=== PATIENT | male | born 1980 | race Caucasian/White ===

== ENCOUNTER → 2016-08-12 | Day surgery (SDC) | payer OTHER ==
[2016-07-30 12:57] VITALS: BMI 21.0
[~2016-08-12] VITALS: Ht 165.1 cm; Wt 58.9 kg
[~2016-08-12] MED LIST: ALBU1NEB10 INH; ALEN70TA3 PO; BACIOIN EXT; CHOL1DRO PEG; CLOT1CRE3 EX; LACT10SO17 GT; LEVE100S10 PEG; LEVO-217 PEG; LEVO330T2 PEG; LORA1SOL3 PEG; MAGN400T6 PEG; METO10SO PEG; NUTR-673 PEG; NYSS/ PEG; ONDA4TAB4 PO; PANTPAK PEG; PBL PEG; SLSS EXT; TRIA0.1C20 EX; [UNRECOGNIZED DRUG - CODE] PEG
[2016-08-12 14:11] VITALS: Ht 165.1 cm; Wt 58.9 kg
--- NOTE | 2016-08-12 15:05 | Discharge Instructions ---
Endoscopy Patient Instructions Date / Procedure Performed Aug 12, 2016. Percutaneous Endoscopic Gastrotomy (P.E.G) Tube Replacement / Removal Allergy Information Coded Allergies: Cephalexin (Verified Allergy, Intermediate, rash, 08/12/16) Clavulanic Acid (Verified Allergy, Intermediate, rash, 08/12/16) Cephalosporins (Verified Allergy, Mild, ALLERGY TO CLAFORAN, 08/12/16) Senna (Verified Allergy, Mild, RASH, 08/12/16) Home Medication List Scheduled Alendronate/Cholecalciferol (Fosamax+D 70MG/5600 Iu), 1 TABLET PO THURSDAY Bacitracin (Bacitracin), 1 APPLN EXT UD Cholecalciferol (Vitamin D), 5 ML PEG QAM Lactulose (Chronulac), GT 2XWK Levetiracetam (Keppra), 5 ML PEG BID Levocarnitine (Metabolic Modif (Carnitor), 660 MG PEG UD Levocarnitine (Metabolic Modif (Carnitor), 330 MG PEG QAM Levothyroxine (Levothroid), 0.05 MG PEG QAM Loratadine (Loratadine), 10 ML PEG QAM Magnesium Oxide (Mag-Ox), 400 MG PEG BID Metoclopramide Hcl (Reglan), 10 ML PEG ACHS Nutritional Supplements (Jevity 1.5 Tung), 1 CAN PEG 5XD Pantoprazole Sodium (Protonix), 1 PACK PEG QPM Phenobarbital (Phenobarbital), 20 ML PEG HS Phenytoin (Dilantin-125), 3 ML PEG QAM Phenytoin (Dilantin-125), 2 ML PEG BID UD Selenium Sulfide (Selsun), EXT UD Scheduled PRN Albuterol Soln (Ventolin Soln), 1 AMP INH Q4H PRN for PRN Clotrimazole Vaginal (Clotrimazole), EX BID PRN Nystatin (Nystatin Suspension), 1 TSP PEG QID PRN Ondansetron Tab (Zofran), 4 MG PO UD PRN for Nausea Triamcinolone Acet 0.1% (Aristocort 0.1%), EX UD PRN Discharge Date / Findings Aug 12, 2016. CHIKIS-SELBY PEG replaced. Medication Instructions Restart Stopped Medication(s): Restart tube feeds and medications today. Provider Instructions Activity Recommendations * Resume regular activity . Diet Recommendations * Resume previous diet. * Advance diet as tolerated. * Before each feeding, aspirate the tube for residual gastric contents. Hold feedings for residual of 50 ml or more. * Elevate the head of the bed during and after feedings for 30-60 minutes . Medication Instructions * Resume usual medications. * Always flush the tube with warm water after administration of medication. Follow-Up Information Follow-up with as scheduled Anesthesia Information What You Should Know You have had a procedure that required some medicine to reduce anxiety and discomfort. This treatment is called moderate sedation. After receiving the treatment, you may be sleepy, but you will be able to breathe on your own. The effects of the treatment may last for several hours. Follow these instructions along with Activity/Diet recommendations noted above: * Do NOT do anything where dizziness or clumsiness would be dangerous. * Rest quietly at home today, then you can be up and about tomorrow. * Have a responsible person stay with you the rest of today. * You may have had an I.V. today. If so, you may take the dressing off later today. Symptoms Additional Instructions If you experience any of the following symptoms after your procedure seek medical attention at your closest Emergency Room and/or call your primary care physician immediately: * Severe abdominal pain or bloating * Fever greater than 101.1 degrees within 24 hours after the procedure * Uncontrolled nausea and vomiting Avoid all tobacco products. If you need help to stop smoking, call [place]'s FREE QUIT LINE at [phone]- [phone]. Your discharge instructions were prepared by provider Dewayne Reich. Patient Instructions Signature Page Epi Sosa Patient (or Guardian) Signature/Date: I have read and understand the instructions given to me by my caregivers. Caregiver/RN/Doctor Signature/Date: The above-named patient and/or guardian has received patient instructions on this date. + Original Patient Signature Page (only) stays with chart. Please make copy for patient.
--- NOTE | 2016-08-12 15:10 | GI REPORT ---
Procedure Date: 08/12/2016 3:06 PM Procedure: Non-endoscopic Tube Procedure Indications: Routine exchange PEG tube Medicines: None Complications: No immediate complications. Estimated blood loss: None Estimated Blood Loss: Estimated blood loss: none. Procedure: Pre-Anesthesia Assessment: - Prior to the procedure, a History and Physical was performed, and patient medications, allergies and sensitivities were reviewed. The patient's tolerance of previous anesthesia was reviewed. - ASA Grade Assessment: III - A patient with severe systemic disease. After obtaining informed consent, the site was prepped and the procedure was performed. The procedure was accomplished with ease. The patient tolerated the procedure well. Findings: Upon external examination, skin erythema was found surrounding the stomal opening. The gastrostomy tube was broken. The existing gastrostomy site was examined and cleaned. A 20 Fr CHIKIS-SELBY low-profile gastrostomy tube was lubricated and placed into the existing gastrostomy port. A total of 5 mL saline was used to distend the balloon that was previously tested. When positioned, the skin marking was noted to be 3.5 cm at the external bumper. The final tension and compression of the abdominal wall by the gastrostomy tube and external bumper were checked and revealed that the bumper was loose and lightly touching the skin. Placement into the stomach was confirmed with flushing, aspiration and auscultation. The tube was capped, and the tube site was cleaned and dressed. Impression: - The previously removed gastrostomy tube was replaced with a 20 Fr CHIKIS-SELBY low-profile gastrostomy tube. - No specimens collected. Recommendation: - Discharge patient to home (with parent). - Please follow the post-PEG recommendations. Dewayne Reich M.D. Dewayne Reich MD 08/12/2016 3:10:56 PM This report has been signed electronically. Note Initiated On: 08/12/2016 3:06 PM I attest to the content of the Intraoperative Record and orders documented therein, exceptions below
--- NOTE | 2016-08-12 15:11 | Endo History and Physical ---
History & Physical Date of Service: Aug 12, 2016. Chief Complaint: PEG change Referring Physician: Dr. Soto History of Present Illness CHIKIS-SELBY button PEG, needs changed Past Medical History Arthritis, Asthma, Reflux, Seizure Disorder, Thyroid Disease Past Surgical History Hx Cardiac Surgery: No Hx Internal Defibrillator: No Hx Pacemaker: No Hx Abdominal Surgery: Yes (PEG TUBE PLACEMENT X MANY REPLACEMENTS) Hx of Implantable Prosthesis: No Hx Post-Op Nausea and Vomiting: No Hx Cancer Surgery: No Hx Thoracic Surgery: No Hx Orthopedic: No Hx Urinary Tract Surgery: No Family History None Social History Smoking Status: Never Smoker Hx Substance Use: No Hx Alcohol Use: No Allergies Coded Allergies: Cephalexin (Verified Allergy, Intermediate, rash, 08/12/16) Clavulanic Acid (Verified Allergy, Intermediate, rash, 08/12/16) Cephalosporins (Verified Allergy, Mild, ALLERGY TO CLAFORAN, 08/12/16) Senna (Verified Allergy, Mild, RASH, 08/12/16) Current Medications Reported Home Medications Medications Dose Route/Sig Max Daily Dose Days Date Category Dose Instructions Fosamax+D 70MG/5600 Iu (Alendronate Sodium/Vitamin D3) 70 Mg Tab 1 Tablet PO Thursday12/14/14 Reported Chronulac (Lactulose) 10 Gm/15 Ml Syrp GT 2XWK 12/12/14 Reported Ventolin Soln (Albuterol Soln) 0.083 % Neb 1 Amp INH Q4H PRN 07/06/14 Reported PRN SHORTNESS OF BREATH/WHEEZING Bacitracin Oin 1 Appln EXT UD 07/06/14 Reported APPLY TO SITE 2 T 3X DAILY NEEDED Selsun (Selenium Sulfide) Lotn EXT UD 14 07/06/14 Reported APPLY TO AFFECTED AREAS , LEAVE ON FOR 10 MINUTES ONCE A DAY FOR 7 DAYS Zofran (Ondansetron HCl) 4 Mg Tab 4 Mg PO UD PRN 07/06/14 Reported SOLN 4MG/5ML- GIVE 10ML 3 TIMES DAILY NEEDED FOR VOMITING Vitamin D (Cholecalciferol) 400 Unit/Ml Jaya 5 Ml PEG QAM 03/24/14 Reported Dilantin-125 (Phenytoin) 125 Mg/5 Ml Francine 2 Ml PEG BID UD 06/30/13 Reported 2 MLS IN THE AFTERNOON AND EVENING Dilantin-125 (Phenytoin) 125 Mg/5 Ml Francine 3 Ml PEG QAM 06/30/13 Reported Protonix (Pantoprazole Sodium) 40 Mg Jaswinder 1 Pack PEG QPM 06/30/13 Reported Jevity 1.5 Tung (Nutritional Supplements) 1 Liq Liq 1 Can PEG 5XD 01/10/13 Reported Aristocort 0.1% (Triamcinolone Acetonide) Cr EX UD PRN 01/10/13 Reported Clotrimazole (Clotrimazole Vaginal) 1 % Cre EX BID PRN 01/10/13 Reported USE TWICE A DAY DIRECTED FOR RASH Loratadine 5 Mg/5 Ml Syp 10 Ml PEG QAM 01/10/13 Reported Nystatin Suspension (Nystatin) 1 Ml Susp 1 Tsp PEG QID PRN 01/10/13 Reported Reglan (Metoclopramide HCl) 5 Mg/5 Ml Syrp 10 Ml PEG ACHS 01/10/13 Reported TAKE 30 MINS. PRIOR TO MEALS AND AT HS Carnitor (Levocarnitine (Metabolic Modif) 330 Mg Tab 330 Mg PEG QAM 01/10/13 Reported Carnitor (Levocarnitine (Metabolic Modif) 330 Mg Tab 660 Mg PEG UD 01/10/13 Reported 660 MG IN THE EVENING AND AT HS Levothroid (Levothyroxine Sodium) 0.05 Mg Tab 0.05 Mg PEG QAM 01/10/13 Reported Phenobarbital 20 Mg/5 Ml Elix 20 Ml PEG HS 01/10/13 Reported Keppra (Levetiracetam) 100 Mg/Ml Franci 5 Ml PEG BID 01/10/13 Reported Mag-Ox (Magnesium Oxide) 400 Mg Tab 400 Mg PEG BID 03/29/07 Reported Vital Signs Weight (Kilograms): 58.9 Height (Feet): 5 Height (Inches): 5 Date Time Temp Pulse Resp B/P Pulse Ox O2 Delivery O2 Flow Rate FiO2 08/12/16 13:50 75 20 120/66 96 Room Air Physical Exam General Appearance: WD/WN, no apparent distress Respiratory/Chest: Auscultation: breath sounds normal Cardiovascular: Heart Auscultation: RRR, no murmurs Abdomen: Inspection & Palpation: soft, no tenderness, guarding & rebound Assessment and Plan For PEG exchange.
[2016-08-12 15:15] VITALS: BP 124/68; PULSE 73; O2SAT 95
== END | disposition home or self-care (01) ==
LOC: C.GI 13:12
PROVIDERS: ATTEND Internal Medicine Gastroenterology
DX: Z43.1 Encounter for attention to gastrostomy (principal); J45.909 Unspecified asthma, uncomplicated

== ENCOUNTER → 2016-12-09 | Day surgery (SDC) | payer OTHER ==
[2016-12-01 10:35] VITALS: Ht 165.1 cm; Wt 57.7 kg
[~2016-12-09] VITALS: Ht 165.1 cm; Wt 57.7 kg
[2016-12-09 10:00] VITALS: TEMP 36.4
--- NOTE | 2016-12-09 10:49 | GI REPORT ---
Procedure Date: 12/09/2016 10:43 AM Procedure: Non-endoscopic Tube Procedure Indications: Routine exchange PEG tube Medicines: None Complications: No immediate complications. Estimated Blood Loss: Estimated blood loss: none. Procedure: Pre-Anesthesia Assessment: - Prior to the procedure, a History and Physical was performed, and patient medications, allergies and sensitivities were reviewed. The patient's tolerance of previous anesthesia was reviewed. - The risks and benefits of the procedure and the sedation options and risks were discussed with the patient and family/POA present. All questions were answered and informed consent was obtained. - Patient identification and proposed procedure were verified prior to the procedure by the physician and the nurse. The procedure was verified in the pre-procedure area. - Pre-procedure physical examination revealed no contraindications to sedation. - After reviewing the risks and benefits, the patient was deemed in satisfactory condition to undergo the procedure. After obtaining informed consent, the site was prepped and the procedure was performed. The procedure was accomplished without difficulty. The patient tolerated the procedure well. Findings: Upon external examination, normal-appearing skin was found surrounding the stomal opening. The existing gastrostomy site was examined and cleaned and appeared healthy. A 20 Fr CHIKIS-SELBY low-profile gastrostomy tube was lubricated and placed into the existing gastrostomy port. A total of 5 mL saline was used to distend the balloon that was previously tested. When positioned, the skin marking was noted to be 3.5 cm at the external bumper. The final tension and compression of the abdominal wall by the gastrostomy tube and external bumper were checked and revealed that the bumper was loose and lightly touching the skin. Placement into the stomach was confirmed by easily flushing the tube. The tube was capped, and the tube site was cleaned and dressed. Estimated blood loss: none. Impression: - The previously removed gastrostomy tube was replaced with a 20 Fr CHIKIS-SELBY low-profile gastrostomy tube. - No specimens collected. Recommendation: - Discharge patient to home. Prabhakar Dai M.D. Prabhakar Dai MD 12/09/2016 10:49:18 AM This report has been signed electronically. Note Initiated On: 12/09/2016 10:43 AM I attest to the content of the Intraoperative Record and orders documented therein, exceptions below
--- NOTE | 2016-12-09 10:50 | Endo History and Physical ---
History & Physical Date of Service: Dec 09, 2016. Chief Complaint: routine change Referring Physician: Dr. Sal History of Present Illness for peg exchange Past Medical History Arthritis, Asthma, Reflux, Seizure Disorder, Thyroid Disease Past Surgical History Hx Cardiac Surgery: No Hx Internal Defibrillator: No Hx Pacemaker: No Hx Abdominal Surgery: Yes (PEG TUBE PLACEMENT X MANY REPLACEMENTS) Hx of Implantable Prosthesis: No Hx Post-Op Nausea and Vomiting: No Hx Cancer Surgery: No Hx Thoracic Surgery: No Hx Orthopedic: No Hx Urinary Tract Surgery: No Social History Smoking Status: Never Smoker Hx Substance Use: No Hx Alcohol Use: No Allergies Coded Allergies: Cephalexin (Verified Allergy, Intermediate, rash, 12/01/16) Clavulanic Acid (Verified Allergy, Intermediate, rash, 12/01/16) Cephalosporins (Verified Allergy, Mild, ALLERGY TO CLAFORAN, 12/01/16) Senna (Verified Allergy, Mild, RASH, 12/01/16) Current Medications Reported Home Medications Medications Dose Route/Sig Max Daily Dose Days Date Category Dose Instructions Fosamax+D 70MG/5600 Iu (Alendronate Sodium/Vitamin D3) 70 Mg Tab 1 Tablet PO Thursday12/14/14 Reported Chronulac (Lactulose) 10 Gm/15 Ml Syrp GT 2XWK 12/12/14 Reported Ventolin Soln (Albuterol Soln) 0.083 % Neb 1 Amp INH Q4H PRN 07/06/14 Reported PRN SHORTNESS OF BREATH/WHEEZING Bacitracin Oin 1 Appln EXT UD 07/06/14 Reported APPLY TO SITE 2 T 3X DAILY NEEDED Selsun (Selenium Sulfide) Lotn EXT UD 14 07/06/14 Reported APPLY TO AFFECTED AREAS , LEAVE ON FOR 10 MINUTES ONCE A DAY FOR 7 DAYS Zofran (Ondansetron HCl) 4 Mg Tab 4 Mg PO UD PRN 07/06/14 Reported SOLN 4MG/5ML- GIVE 10ML 3 TIMES DAILY NEEDED FOR VOMITING Vitamin D (Cholecalciferol) 400 Unit/Ml Jaya 5 Ml PEG QAM 03/24/14 Reported Dilantin-125 (Phenytoin) 125 Mg/5 Ml Francine 2 Ml PEG BID UD 06/30/13 Reported 2 MLS IN THE AFTERNOON AND EVENING Dilantin-125 (Phenytoin) 125 Mg/5 Ml Francine 3 Ml PEG QAM 06/30/13 Reported Protonix (Pantoprazole Sodium) 40 Mg Jaswinder 1 Pack PEG QPM 06/30/13 Reported Jevity 1.5 Tung (Nutritional Supplements) 1 Liq Liq 1 Can PEG 5XD 01/10/13 Reported Aristocort 0.1% (Triamcinolone Acetonide) Cr EX UD PRN 01/10/13 Reported Clotrimazole (Clotrimazole Vaginal) 1 % Cre EX BID PRN 01/10/13 Reported USE TWICE A DAY DIRECTED FOR RASH Loratadine 5 Mg/5 Ml Syp 10 Ml PEG QAM 01/10/13 Reported Nystatin Suspension (Nystatin) 1 Ml Susp 1 Tsp PEG QID PRN 01/10/13 Reported Reglan (Metoclopramide HCl) 5 Mg/5 Ml Syrp 10 Ml PEG ACHS 01/10/13 Reported TAKE 30 MINS. PRIOR TO MEALS AND AT HS Carnitor (Levocarnitine (Metabolic Modif) 330 Mg Tab 330 Mg PEG QAM 01/10/13 Reported Carnitor (Levocarnitine (Metabolic Modif) 330 Mg Tab 660 Mg PEG UD 01/10/13 Reported 660 MG IN THE EVENING AND AT HS Levothroid (Levothyroxine Sodium) 0.05 Mg Tab 0.05 Mg PEG QAM 01/10/13 Reported Phenobarbital 20 Mg/5 Ml Elix 20 Ml PEG HS 01/10/13 Reported Keppra (Levetiracetam) 100 Mg/Ml Franci 5 Ml PEG BID 01/10/13 Reported Mag-Ox (Magnesium Oxide) 400 Mg Tab 400 Mg PEG BID 03/29/07 Reported Vital Signs Weight (Kilograms): 57.73 Height (Feet): 5 Height (Inches): 5 Date Time Temp Pulse Resp B/P (MAP) Pulse Ox O2 Delivery O2 Flow Rate FiO2 12/09/16 10:00 36.4 75 16 105/79 (88) 97 Room Air Physical Exam General Appearance: no apparent distress Respiratory/Chest: Auscultation: breath sounds normal Cardiovascular: Heart Auscultation: RRR Abdomen: Inspection & Palpation: soft, no tenderness, guarding & rebound Assessment and Plan stable for PEG change
--- NOTE | 2016-12-09 10:51 | Discharge Instructions ---
Endoscopy Patient Instructions Date / Procedure(s) Performed Dec 09, 2016. Other Allergy Information Coded Allergies: Cephalexin (Verified Allergy, Intermediate, rash, 12/01/16) Clavulanic Acid (Verified Allergy, Intermediate, rash, 12/01/16) Cephalosporins (Verified Allergy, Mild, ALLERGY TO CLAFORAN, 12/01/16) Senna (Verified Allergy, Mild, RASH, 12/01/16) Discharge Date / Findings Dec 09, 2016. s/p PEG exchange Provider Instructions Activity Restrictions - No exercising or heavy lifting for 24 hours. - Do not drink alcohol the day of the procedure. - Do not drive a car or operate machinery until the day after the procedure. - Do not make any important decisions or sign important papers in 24 hours after the procedure. Following Day: - Return to full activity which may include returning to work/school. Diet Start your diet with liquids and light foods (jello, soup, juice, toast). Then eat your usual diet if not nauseated. Treatment For Common After Affects For mild abdominal pain, bloating, or excessive gas: - Rest - Eat lightly - Lie on right side Follow-Up Information Follow-up with Dr. Sal as scheduled Anesthesia Information What You Should Know You have had a procedure that required some medicine to reduce anxiety and discomfort. This treatment is called moderate sedation. After receiving the treatment, you may be sleepy, but you will be able to breathe on your own. The effects of the treatment may last for several hours. Follow these instructions along with Activity/Diet recommendations noted above: * Do NOT do anything where dizziness or clumsiness would be dangerous. * Rest quietly at home today, then you can be up and about tomorrow. * Have a responsible person stay with you the rest of today. * You may have had an I.V. today. If so, you may take the dressing off later today. Recommendations Call your doctor if: * Trouble breathing * Continuous vomiting for more than 24 hours * Temperature above 101 degrees * Severe abdominal pain or bloating * Pain not relieved by pain medicine ordered * There is increased drainage or redness from any incision * A large amount of rectal bleeding greater than 2-3 tablespoons. (If you had a polyp/s removed or have hemorrhoids, a small amount of blood - from the rectum is to be expected.) * You have any unanswered questions or concerns. IN THE EVENT OF A SERIOUS EMERGENCY, GO TO THE NEAREST EMERGENCY ROOM Your discharge instructions were prepared by provider Prabhakar Dai. Patient Instructions Signature Page Epi Sosa Patient (or Guardian) Signature/Date: I have read and understand the instructions given to me by my caregivers. Caregiver/RN/Doctor Signature/Date: The above-named patient and/or guardian has received patient instructions on this date. + Original Patient Signature Page (only) stays with chart. Please make copy for patient.
[2016-12-09 10:52] VITALS: BP 110/64; PULSE 74; O2SAT 97
== END | disposition home or self-care (01) ==
LOC: C.GI 09:24
PROVIDERS: ATTEND Internal Medicine Gastroenterology
DX: Z43.1 Encounter for attention to gastrostomy (principal); K21.9 Gastro-esophageal reflux disease without esophagitis; J45.909 Unspecified asthma, uncomplicated; G40.909 Epilepsy, unspecified, not intractable, without status epilepticus; E07.9 Disorder of thyroid, unspecified; Z79.899 Other long term (current) drug therapy

== ENCOUNTER → 2017-04-21 | Day surgery (SDC) | payer OTHER ==
[2017-04-14 14:37] VITALS: Ht 165.1 cm; Wt 57.7 kg
[~2017-04-21] VITALS: Ht 165.1 cm; Wt 57.7 kg
[~2017-04-21] MED LIST changes: -ALBU1NEB10 INH; +BACI500O11 EXT; -BACIOIN EXT; -LEVO-217 PEG; +LEVO50TA6 PEG; -METO10SO PEG; +METO5SOL PEG; +ONDA4SOL PEG; -ONDA4TAB4 PO; -TRIA0.1C20 EX; +TRMCR515 TOP; +VNTHFA/IN INH
== END | disposition home or self-care (01) ==
LOC: C.GI 11:04
PROVIDERS: ATTEND Internal Medicine Gastroenterology
DX: Z93.1 Gastrostomy status (principal); Z53.9 Procedure and treatment not carried out, unspecified reason

== ENCOUNTER 2017-06-29 10:19 | Emergency (ER) | payer OTHER ==
[~2017-06-29] VITALS: Ht 188 cm; Wt 55.5 kg
[~2017-06-29 10:19] MED LIST changes: -LACT10SO17 GT; +LACT10SO17 PEG
[2017-06-29 11:29] VITALS: Ht 188 cm; Wt 55.5 kg
[2017-06-29] MEDS ORDERED: CLOT1CRE3 TOP (12:35)
[2017-06-29] MEDS ORDERED: ALEN70TA2 PO (12:35)
[2017-06-29] MEDS ORDERED: RRALBUT083 INH (12:35)
[2017-06-29] MEDS ORDERED: BISA10SU38 PR (12:35)
[2017-06-29 12:42] LABS: BASO % 0.3 %; BASO ABS # 0.02 K/uL (0-0.2); EOS % 6.2 %; EOS ABS # 0.38 K/uL (0-0.5); HEMATOCRIT 42.4 % (42-52); HEMOGLOBIN 14.2 g/dL (14.0-18.0); IG# 0.01 K/uL (0.00-0.02); LYMPH % 38.6 %; LYMPH ABS # 2.36 K/uL (1.2-3.4); MEAN CELL VOLUME 92.2 fL (80-100); MEAN CORPUSCULAR HEMOGLOBIN 30.9 pg (25-34); MEAN CORPUSCULAR HGB CONC 33.5 g/dl (32-36); MEAN PLATELET VOLUME 11.1 fL (7.4-10.4); MONO % 15.2 %; MONO ABS # 0.93 K/uL (0.11-0.59); NEUT % 39.5 %; NEUT ABS # 2.42 K/uL (1.4-6.5); PLATELET COUNT 205 K/uL (130-400); RED CELL DISTRIBUTION WIDTH CV 13.5 % (11.5-14.5); RED CELL DISTRIBUTION WIDTH SD 45.4 fL (36.4-46.3); WHITE BLOOD COUNT 6.12 K/uL (4.8-10.8)
[2017-06-29 12:54] LABS: INR 1.1 (0.9-1.1); PTT PATIENT 32.2 SECONDS (21.0-31.0)
[2017-06-29 12:59] LABS: ALBUMIN 3.9 gm/dl (3.4-5.0); ALT/SGPT 25 U/L (12-78); AST/SGOT 20 U/L (15-37); BLOOD UREA NITROGEN 28 mg/dl (7-18); CALCIUM 9.1 mg/dl (8.5-10.1); CARBON DIOXIDE 30 mmol/L (21-32); CREATININE 0.53 mg/dl (0.60-1.40); POTASSIUM 3.6 mmol/L (3.5-5.1); SODIUM 140 mmol/L (136-145)
--- NOTE | 2017-06-29 13:00 | DIAGNOSTIC IMAGING REPORT ---
CHEST ONE VIEW PORTABLE CLINICAL HISTORY: congestion dyspnea COMPARISON STUDY: 03/29/2007 FINDINGS: Mild stable cardiomegaly. Central catheter in superior vena cava. Lungs are clear. Chronic scoliosis of the thoracic spine. IMPRESSION: No acute process. The above report was generated using voice recognition software. It may contain grammatical, syntax or spelling errors. Electronically signed by: Chano Ndiaye M.D. 06/29/2017 12:59 PM Dictated Date/Time: 06/29/2017 12:58 PM
[2017-06-29 13:05] LABS: ALKALINE PHOSPHATASE 89 U/L (45-117); GLUCOSE 86 mg/dl (70-99); TOTAL PROTEIN 7.3 gm/dl (6.4-8.2)
[2017-06-29 13:06] LABS: INFLUENZA A PCR Neg for Influ A (NEG); INFLUENZA B PCR Neg for Influ B (NEG)
[2017-06-29] MEDS ORDERED: IBUPROFEN 200 MG/10 ML UDC PO STA (13:15)
--- NOTE | 2017-06-29 13:22 | EMERGENCY ROOM VISIT NOTE ---
History Report prepared by Onelia: Dao Beaver Under the Supervision of: Dr. Rebecca Palma D.O. First contact with patient: 11:59 Chief Complaint: FLU LIKE SX Stated Complaint: SEIZURE,HIGH FEVER History of Present Illness The patient is a 37 year old male who presents to the Emergency Room with complaints of a persistent fever that began last night. This history is given by the patient's parents. He has a past medical history of seizures and is currently taking Keppra, Phenobarbital, and Dilantin. Since last night, the patient's temperature has been elevated at 102 F. He also has been having some yellow, crusty rhinorrhea, coughing, and shakiness. This morning, the patient had a normal seizure that lasted 1 minute, and he came out of it normally. He received his influenza immunization and denies any sick contacts. He does not leave the house often, but his parents do. He has been moving his bowels normally and denies any diarrhea, hematochezia, or melena. Source of History: patient Onset: last night Position: other (Global) Symptom Intensity: 102 F Quality: other (Fever) Timing: constant Associated Symptoms: + cough, No melena, No hematochezia, No diarrhea Note: He has been shaky with yellow, crusty rhinorrhea. Review of Systems See HPI for pertinent positives & negatives. A total of 10 systems reviewed and were otherwise negative. Past Medical & Surgical Medical Problems: (1) Cerebral palsy (2) Pneumonia Family History Diabetes mellitus Gallbladder disease Heart disease Hypertension Kidney disease Social History Smoking Status: Never Smoker Smokeless Tobacco Use: No Alcohol Use: none Drug Use: none Marital Status: single Housing Status: lives with family Occupation Status: unemployed Current/Historical Medications Scheduled Alendronate Sodium (Fosamax), 70 MG PO WK Cholecalciferol (Vitamin D), 3 ML PEG BID Lactulose (Chronulac), 15 ML PEG QID Levetiracetam (Keppra), 5 ML PEG BID Levocarnitine (Metabolic Modif (Carnitor), 660 MG PEG UD Levocarnitine (Metabolic Modif (Carnitor), 330 MG PEG QAM Levothyroxine Sodium (Levothyroxine Sodium), 50 MCG PEG QAM Loratadine (Loratadine), 10 ML PEG QAM Magnesium Oxide (Mag-Ox), 400 MG PEG BID Metoclopramide Hcl (Reglan), 10 ML PEG ACHS Nutritional Supplements (Jevity 1.5 Tung), 1 CAN PEG 5XD Pantoprazole Sodium (Protonix), 1 PACK PEG QPM Phenobarbital (Phenobarbital), 20 ML PEG HS Phenytoin (Dilantin-125), 3 ML PEG QAM Phenytoin (Dilantin-125), 2 ML PEG BID UD Scheduled PRN Albuterol Hfa (Ventolin Hfa), 2-4 PUFFS INH Q6H PRN for SOB/Wheezing Albuterol Sulf (Albuterol Sulfate), 3 ML INH Q4H PRN for SOB/Wheezing Bacitracin (Topical) (Bacitracin), 1 APPLN EXT TID PRN for PRN Bisacodyl (Dulcolax), 10 MG [place] Q2D PRN for Constipation Clotrimazole Vaginal (Clotrimazole), 1 APPLN TOP BID PRN for RASH Nystatin (Nystatin Suspension), 1 TSP PEG QID PRN Ondansetron (Ondansetron HCl), 10 ML PEG TID PRN for Nausea Selenium Sulfide (Selsun), 0 EXT UD PRN for PRN Triamcinolone Acet (Triamcinolone Acetonide), 1 APPLN TOP BID PRN for PRN Allergies Coded Allergies: Amoxicillin (Unverified Allergy, Severe, RASH, 06/29/17) Cephalexin (Verified Allergy, Intermediate, rash, 06/29/17) Clavulanic Acid (Verified Allergy, Intermediate, rash, 06/29/17) Cephalosporins (Verified Allergy, Mild, ALLERGY TO CLAFORAN, 06/29/17) Senna (Verified Allergy, Mild, RASH, 06/29/17) Physical Exam Vital Signs Date Time Temp Pulse Resp B/P (MAP) Pulse Ox O2 Delivery O2 Flow Rate FiO2 06/29/17 16:25 68 18 96 06/29/17 15:30 82 18 96 Room Air 06/29/17 13:36 06/29/17 13:36 36.8 90 16 183/158 96 Room Air 06/29/17 13:31 72 06/29/17 12:07 93 18 96 Room Air 06/29/17 11:29 37.3 93 18 211/180 96 Room Air 2/5/18 10:40 65 18 99 Room Air Physical Exam HEENT: Head - normocephalic and atraumatic Pupils are equal, round, and reactive to light. Extraocular eye muscles are intact, and sclera are anicteric. Nose - moist nasal mucosa without discharge. Mouth - moist buccal mucosa. Oropharynx is nonerythematous and there is no tonsillar exudate or edema noted. Neck: Supple; no JVD, nuchal rigidity, cervical lymphadenopathy. Heart: Tachycardic rate with a regular rhythm. There is a normal S1 and S2 with no murmurs, clicks, or gallops appreciated. Lungs: Clear to auscultation bilaterally with no wheezes, rales, or rhonchi. Abdomen: Soft, completely nontender, distended, with good bowel sounds. There are no palpable pulsatile masses or hepatosplenomegaly. There is no guarding, rigidity, or rebound noted. Extremities: No evidence of cyanosis, clubbing, or edema. There are easily palpable peripheral pulses. Abrasions to the dorsal aspect of the right hand. Skin: hot and dry with good turgor and no rashes. Medical Decision & Procedures ER Provider Diagnostic Interpretation: Radiology results as stated below per my review and the radiologist's interpretation: CHEST ONE VIEW PORTABLE CLINICAL HISTORY: congestion dyspnea COMPARISON STUDY: 03/29/2007 FINDINGS: Mild stable cardiomegaly. Central catheter in superior vena cava. Lungs are clear. Chronic scoliosis of the thoracic spine. IMPRESSION: No acute process. The above report was generated using voice recognition software. It may contain grammatical, syntax or spelling errors. Electronically signed by: Chano Ndiaye M.D. 06/29/2017 12:59 PM Dictated Date/Time: 06/29/2017 12:58 PM Laboratory Results 06/29/17 12:00 Red Blood Count 4.60, Mean Corpuscular Volume 92.2, Mean Corpuscular Hemoglobin 30.9, Mean Corpuscular Hemoglobin Concent 33.5, Mean Platelet Volume 11.1, Neutrophils (%) (Auto) 39.5, Lymphocytes (%) (Auto) 38.6, Monocytes (%) (Auto) 15.2, Eosinophils (%) (Auto) 6.2, Basophils (%) (Auto) 0.3, Neutrophils # (Auto ) 2.42, Lymphocytes # (Auto) 2.36, Monocytes # (Auto) 0.93, Eosinophils # (Auto ) 0.38, Basophils # (Auto) 0.02 06/29/17 12:00 Test 06/29/17 11:50 06/29/17 12:00 06/29/17 12:10 06/29/17 13:35 Influenza Type A (RT-PCR) Neg for Influ A (NEG) Influenza Type B (RT-PCR) Neg for Influ B (NEG) White Blood Count 6.12 K/uL (4.8-10.8) Red Blood Count 4.60 M/uL (4.7-6.1) Hemoglobin 14.2 g/dL (14.0-18.0) Hematocrit 42.4 % (42-52) Mean Corpuscular Volume 92.2 fL (80-100) Mean Corpuscular Hemoglobin 30.9 pg (25-34) Mean Corpuscular Hemoglobin Concent 33.5 g/dl (32-36) Platelet Count 205 K/uL (130-400) Mean Platelet Volume 11.1 fL (7.4-10.4) Neutrophils (%) (Auto) 39.5 % Lymphocytes (%) (Auto) 38.6 % Monocytes (%) (Auto) 15.2 % Eosinophils (%) (Auto) 6.2 % Basophils (%) (Auto) 0.3 % Neutrophils # (Auto) 2.42 K/uL (1.4-6.5) Lymphocytes # (Auto) 2.36 K/uL (1.2-3.4) Monocytes # (Auto) 0.93 K/uL (0.11-0.59) Eosinophils # (Auto) 0.38 K/uL (0-0.5) Basophils # (Auto) 0.02 K/uL (0-0.2) RDW Standard Deviation 45.4 fL (36.4-46.3) RDW Coefficient of Variation 13.5 % (11.5-14.5) Immature Granulocyte % (Auto) 0.2 % Immature Granulocyte # (Auto) 0.01 K/uL (0.00-0.02) Prothrombin Time 11.5 SECONDS (9.0-12.0) Prothromb Time International Ratio 1.1 (0.9-1.1) Activated Partial Thromboplast Time 32.2 SECONDS (21.0-31.0) Partial Thromboplastin Ratio 1.2 Anion Gap 5.0 mmol/L (3-11) Est Creatinine Clear Calc Drug Dose 149.8 ml/min Estimated GFR () > 150.0 Estimated GFR (Non- 135.2 BUN/Creatinine Ratio 53.1 (10-20) Calcium Level 9.1 mg/dl (8.5-10.1) Magnesium Level 2.6 mg/dl (1.8-2.4) Total Bilirubin 0.4 mg/dl (0.2-1) Aspartate Amino Transf (AST/SGOT) 20 U/L (15-37) Alanine Aminotransferase (ALT/SGPT) 25 U/L (12-78) Alkaline Phosphatase 89 U/L (45-117) Total Protein 7.3 gm/dl (6.4-8.2) Albumin 3.9 gm/dl (3.4-5.0) Globulin 3.4 gm/dl (2.5-4.0) Albumin/Globulin Ratio 1.1 (0.9-2) Bedside Lactic Acid Venous 0.63 mmol/L (0.90-1.70) Urine Color DK YELLOW Urine Appearance CLOUDY (CLEAR) Urine pH 7.5 (4.5-7.5) Urine Specific [place] 1.027 (1.000-1.030) Urine Protein NEG (NEG) Urine Glucose (UA) NEG (NEG) Urine Ketones NEG (NEG) Urine Occult Blood NEG (NEG) Urine Nitrite NEG (NEG) Urine Bilirubin NEG (NEG) Urine Urobilinogen NEG (NEG) Urine Leukocyte Esterase NEG (NEG) Urine WBC (Auto) 1-5 /hpf (0-5) Urine RBC (Auto) 0-4 /hpf (0-4) Urine Hyaline Casts (Auto) 1-5 /lpf (0-5) Urine Epithelial Cells (Auto) 10-20 /lpf (0-5) Urine Bacteria (Auto) NEG (NEG) Test 06/29/17 15:37 Phenytoin (Dilantin) Level 7.5 mcg/mL (10-20) Laboratory results per my review. Medications Administered Medications (Trade) Dose Ordered Sig/Alex Route Start Time Stop Time Status Last Admin Dose Admin Sodium Chloride 1,000 ml @ 999 mls/hr Q1H1M STAT IV 06/29/17 14:59 06/29/17 15:59 DC 06/29/17 15:06 999 MLS/HR Heparin Sodium (Porcine) (Heparin 100 Unit/ml 5ml Flush) 5 ml STK-MED ONCE .ROUTE 06/29/17 16:14 06/29/17 16:15 DC 06/29/17 16:17 5 ML Procedure Sodium Chloride 1000 ml @ 999 mls/hr IV. ECG Indication: other (Seizure) Rate (beats per minute): 88 Rhythm: normal sinus Findings: T-wave inversion (V2 and V3), no ectopy, other (Poor baseline) ED Course 1159: Past medical records reviewed. The patient was evaluated in room C11. A complete history and physical exam was performed. A twelve-lead EKG was obtained and had a poor baseline secondary to the patient's rigidity. An IV lock was initiated and labs are drawn as above. Patient's ECG interpreted by me. His nose was swabbed for influenza. The patient had a chest x-ray as described above. 1459: Ordered Sodium Chloride 1000 ml @ 999 mls/hr IV. 1505: I discussed the patient's results with the patient's parents at this time. 1630: Upon reevaluation, the patient is resting. I discussed findings and results with his parents. They verbalized agreement of the treatment plan. He was discharged home. Medical Decision The patient is a 37 year old male who presents to the ED with a fever. Differential diagnosis includes sepsis, influenza, pneumonia, and UTI. Laboratory Results: No leukocytosis, stable H&H, BUN 28, creatinine 0.5, lactic acid 0.6, LFTs normal, coagulation studies are normal, influenza negative, urinalysis negative. The patient presents with upper respiratory symptoms, cough and fever. Chest x- ray reveals no evidence of pneumonia. Influenza testing was negative. However , I did discuss with the parents that his symptoms seem to be consistent with influenza. We talked about starting him on Tamiflu based on his clinical presentation and chronic disease but they declined stating that the patient does not leave the home and therefore his chances of galindo influenza are minimal. I strongly encouraged them to watch the patient closely for any further rest recline and to return to the emergency department. Medication Reconcilliation Current Medication List: was personally reviewed by me Blood Pressure Screening Patient's blood pressure: Elevated blood pressure Blood pressure disposition: Referred to PCP Impression Primary Impression: Flu-like symptoms Scribe Attestation The scribe's documentation has been prepared under my direction and personally reviewed by me in its entirety. I confirm that the note above accurately reflects all work, treatment, procedures, and medical decision making performed by me. Departure Information Dispostion Home / Self-Care Referrals Harley Soto D.O. (PCP) Forms HOME CARE DOCUMENTATION FORM, IMPORTANT VISIT INFORMATION Patient Instructions ED Flu, My [facility] Additional Instructions Rest. Give plenty of clear liquids tylenol for fever Follow up with pcp in 24-48 hours for a recheck.
[2017-06-29 13:36] VITALS: BP 183/158; TEMP 36.8
[2017-06-29] MEDS ORDERED: SODIUM CHLORIDE 0.9% 1000ML 1,000 ML IV STA (14:59)
[2017-06-29 16:25] VITALS: PULSE 68; O2SAT 96
== END 2017-06-29 16:32 | disposition home or self-care (01) ==
LOC: C.EDB 10:21 → C.EDC 16:32
DX: R50.9 Fever, unspecified (principal); J34.89 Other specified disorders of nose and nasal sinuses; R05 Cough; G80.9 Cerebral palsy, unspecified; Z87.01 Personal history of pneumonia (recurrent); Z83.3 Family history of diabetes mellitus; Z82.49 Family history of ischemic heart disease and other diseases of the circulatory system; Z86.69 Personal history of other diseases of the nervous system and sense organs; Z79.899 Other long term (current) drug therapy

== ENCOUNTER → 2017-07-14 | Day surgery (SDC) | payer OTHER ==
[2017-07-07 14:47] VITALS: Ht 165.1 cm; Wt 57.7 kg
[~2017-07-14] VITALS: Ht 165.1 cm; Wt 57.7 kg
[~2017-07-14] MED LIST changes: +ALEN70TA2 PO; -ALEN70TA3 PO; +AMOX250S5 PEG; +BISA10SU38 PR; -CLOT1CRE3 EX; +CLOT1CRE3 TOP; +RRALBUT083 INH
[2017-07-14 09:48] VITALS: BP 115/61; PULSE 89; TEMP 37.2; O2SAT 95
--- NOTE | 2017-07-14 09:55 | Endo History and Physical ---
History & Physical Date of Service: Jul 14, 2017. Chief Complaint: PEG TUBE CHAGNE Referring Physician: DR LIRIANO History of Present Illness PEG change Past Medical History Arthritis, Asthma, Reflux, Seizure Disorder, Thyroid Disease Past Surgical History Hx Cardiac Surgery: No Hx Internal Defibrillator: No Hx Pacemaker: No Hx Abdominal Surgery: Yes (PEG TUBE PLACEMENT X MANY REPLACEMENTS) Hx of Implantable Prosthesis: No Hx Post-Op Nausea and Vomiting: No Hx Cancer Surgery: No Hx Thoracic Surgery: No Hx Orthopedic: No Hx Urinary Tract Surgery: No Family History None Social History Smoking Status: Never Smoker Hx Substance Use: No Hx Alcohol Use: No Allergies Coded Allergies: Amoxicillin (Unverified Allergy, Severe, RASH, 07/14/17) Cephalexin (Verified Allergy, Intermediate, rash, 07/14/17) Clavulanic Acid (Verified Allergy, Intermediate, rash, 07/14/17) Cephalosporins (Verified Allergy, Mild, ALLERGY TO CLAFORAN, 07/14/17) Senna (Verified Allergy, Mild, RASH, 07/14/17) Current Medications Reported Home Medications Medications Dose Route/Sig Max Daily Dose Days Date Category Dose Instructions Amoxil (Amoxicillin) 250 Mg/5 Ml Susp 2 Tsp PEG TID 07/07/17 Reported Dulcolax (Bisacodyl) 10 Mg Sup 10 Mg UT Q2D PRN 06/29/17 Reported Clotrimazole (Clotrimazole Vaginal) 1 % Cre 1 Appln TOP BID PRN 06/29/17 Reported Albuterol Sulfate (Albuterol Sulf) 2.5 Mg/3 Ml Nebu 3 Ml INH Q4H PRN 06/29/17 Reported Fosamax (Alendronate Sodium) 70 Mg Tab 70 Mg PO WK 06/29/17 Reported Triamcinolone Acetonide (Triamcinolone Acet) 45 Appln/15 Gm Cr 1 Appln TOP BID PRN 04/14/17 Reported Selsun (Selenium Sulfide) 2.5 % Lot 0 EXT UD PRN 04/14/17 Reported Ondansetron HCl (Ondansetron) 4 Mg/5 Ml Syrp 10 Ml PEG TID PRN 04/14/17 Reported Reglan (Metoclopramide Hcl) 5 Mg/5 Ml Franci 10 Ml PEG ACHS 04/14/17 Reported Levothyroxine Sodium 50 Mcg Tab 50 Mcg PEG QAM 04/14/17 Reported Bacitracin (Bacitracin (Topical)) 500 Unit/Gm Oin 1 Appln EXT TID PRN 04/14/17 Reported Ventolin Hfa (Albuterol) 200 Puffs/45661 Mcg Aers 2-4 Puffs INH Q6H PRN 04/14/17 Reported Chronulac (Lactulose) 10 Gm/15 Ml Syrp 15 Ml PEG QID 12/12/14 Reported Vitamin D (Cholecalciferol) 400 Unit/Ml Jaya 3 Ml PEG BID 03/24/14 Reported Dilantin-125 (Phenytoin) 125 Mg/5 Ml Francine 2 Ml PEG BID UD 06/30/13 Reported 2 MLS IN THE AFTERNOON AND EVENING Dilantin-125 (Phenytoin) 125 Mg/5 Ml Francine 3 Ml PEG QAM 06/30/13 Reported Protonix (Pantoprazole Sodium) 40 Mg Jaswinder 1 Pack PEG QPM 06/30/13 Reported Jevity 1.5 Tung (Nutritional Supplements) 1 Liq Liq 1 Can PEG 5XD 01/10/13 Reported Loratadine 5 Mg/5 Ml Syp 10 Ml PEG QAM 01/10/13 Reported Nystatin Suspension (Nystatin) 1 Ml Susp 1 Tsp PEG QID PRN 01/10/13 Reported Carnitor (Levocarnitine (Metabolic Modif) 330 Mg Tab 330 Mg PEG QAM 01/10/13 Reported Carnitor (Levocarnitine (Metabolic Modif) 330 Mg Tab 660 Mg PEG UD 01/10/13 Reported 660 MG IN THE EVENING AND AT HS Phenobarbital 20 Mg/5 Ml Elix 20 Ml PEG HS 01/10/13 Reported Keppra (Levetiracetam) 100 Mg/Ml Franci 5 Ml PEG BID 01/10/13 Reported Mag-Ox (Magnesium Oxide) 400 Mg Tab 400 Mg PEG BID 03/29/07 Reported Vital Signs Weight (Kilograms): 57.73 Height (Feet): 5 Height (Inches): 5 Date Time Temp Pulse Resp B/P (MAP) Pulse Ox O2 Delivery O2 Flow Rate FiO2 07/14/17 09:48 37.2 89 18 115/61 (79) 95 Room Air Physical Exam General Appearance: no apparent distress Respiratory/Chest: Auscultation: breath sounds normal Cardiovascular: Heart Auscultation: RRR Abdomen: Inspection & Palpation: soft Liver: non-tender Assessment and Plan stable for PEG change
--- NOTE | 2017-07-14 10:07 | Discharge Instructions ---
Endoscopy Patient Instructions Date / Procedure(s) Performed Jul 14, 2017. Other Allergy Information Coded Allergies: Amoxicillin (Unverified Allergy, Severe, RASH, 07/14/17) Cephalexin (Verified Allergy, Intermediate, rash, 07/14/17) Clavulanic Acid (Verified Allergy, Intermediate, rash, 07/14/17) Cephalosporins (Verified Allergy, Mild, ALLERGY TO CLAFORAN, 07/14/17) Senna (Verified Allergy, Mild, RASH, 07/14/17) Discharge Date / Findings Jul 14, 2017. Normal PEG change Provider Instructions Activity Restrictions - No exercising or heavy lifting for 24 hours. - Do not drink alcohol the day of the procedure. - Do not drive a car or operate machinery until the day after the procedure. - Do not make any important decisions or sign important papers in 24 hours after the procedure. Following Day: - Return to full activity which may include returning to work/school. Diet Start your diet with liquids and light foods (jello, soup, juice, toast). Then eat your usual diet if not nauseated. Treatment For Common After Affects For mild abdominal pain, bloating, or excessive gas: - Rest - Eat lightly - Lie on right side Follow-Up Information Follow-up with DR LIRIANO as scheduled Anesthesia Information What You Should Know You have had a procedure that required some medicine to reduce anxiety and discomfort. This treatment is called moderate sedation. After receiving the treatment, you may be sleepy, but you will be able to breathe on your own. The effects of the treatment may last for several hours. Follow these instructions along with Activity/Diet recommendations noted above: * Do NOT do anything where dizziness or clumsiness would be dangerous. * Rest quietly at home today, then you can be up and about tomorrow. * Have a responsible person stay with you the rest of today. * You may have had an I.V. today. If so, you may take the dressing off later today. Recommendations Call your doctor if: * Trouble breathing * Continuous vomiting for more than 24 hours * Temperature above 101 degrees * Severe abdominal pain or bloating * Pain not relieved by pain medicine ordered * There is increased drainage or redness from any incision * A large amount of rectal bleeding greater than 2-3 tablespoons. (If you had a polyp/s removed or have hemorrhoids, a small amount of blood - from the rectum is to be expected.) * You have any unanswered questions or concerns. IN THE EVENT OF A SERIOUS EMERGENCY, GO TO THE NEAREST EMERGENCY ROOM Your discharge instructions were prepared by provider Prabhakar Dai. Patient Instructions Signature Page Epi Sosa Patient (or Guardian) Signature/Date: I have read and understand the instructions given to me by my caregivers. Caregiver/RN/Doctor Signature/Date: The above-named patient and/or guardian has received patient instructions on this date. + Original Patient Signature Page (only) stays with chart. Please make copy for patient.
--- NOTE | 2017-07-14 10:13 | GI REPORT ---
Procedure Date: 07/14/2017 10:08 AM Procedure: Non-endoscopic Tube Procedure Indications: Routine exchange PEG tube Medicines: None Complications: No immediate complications. Estimated Blood Loss: Estimated blood loss: none. Procedure: Pre-Anesthesia Assessment: - Prior to the procedure, a History and Physical was performed, and patient medications, allergies and sensitivities were reviewed. . - The risks and benefits of the procedure were discussed with the patient's mother. All questions were answered and informed consent was obtained from mother. - Patient identification and proposed procedure were verified prior to the procedure by the physician and the nurse. The procedure was verified in the pre-procedure area. - Pre-procedure physical examination revealed no contraindications to PEG exchange. - After reviewing the risks and benefits, the patient was deemed in satisfactory condition to undergo the procedure. After obtaining informed consent, the site was prepped and the procedure was performed. The procedure was accomplished without difficulty. The patient tolerated the procedure well. Findings: Upon external examination, normal-appearing skin was found surrounding the stomal opening. The gastrostomy tube was patent. The gastrostomy tube had been in place for an extended length of time and required removal. The existing PEG site was cleaned. The existing PEG balloon was deflated and by using traction, removal was easily accomplished. A 20 Fr CHIKIS-SELBY low-profile gastrostomy tube was lubricated and placed into the existing gastrostomy port. A total of 5 mL saline was used to distend the balloon that was previously tested. When positioned, the skin marking was noted to be 3.5 cm at the external bumper. The final tension and compression of the abdominal wall by the gastrostomy tube and external bumper were checked and revealed that the bumper was loose and lightly touching the skin. Placement into the stomach was confirmed by easily flushing the tube. The tube was capped, and the tube site was cleaned and dressed. Estimated blood loss: none. Impression: - The gastrostomy tube had been in place for an extended length of time and was removed and replaced with a 20 Fr CHIKIS-SELBY low-profile gastrostomy tube. - No specimens collected. Recommendation: - Discharge patient to home. Prabhakar Dai M.D. Prabhakar Dai MD 07/14/2017 10:13:23 AM This report has been signed electronically. Note Initiated On: 07/14/2017 10:08 AM I attest to the content of the Intraoperative Record and orders documented therein, exceptions below
== END | disposition home or self-care (01) ==
LOC: C.GI 08:59
PROVIDERS: ATTEND Internal Medicine Gastroenterology
DX: Z43.1 Encounter for attention to gastrostomy (principal); M19.90 Unspecified osteoarthritis, unspecified site; J45.909 Unspecified asthma, uncomplicated; K21.9 Gastro-esophageal reflux disease without esophagitis; G40.909 Epilepsy, unspecified, not intractable, without status epilepticus; Z88.0 Allergy status to penicillin